=== PATIENT | male | born 1975 | race Caucasian/White ===

== ENCOUNTER 2017-11-19 09:04 | Emergency (ER) | payer SELFPAY ==
[2017-11-19 09:05] VITALS: BP 149/94; PULSE 86; RESP 16; TEMP 37.4; O2SAT 97; BMI 29.2
--- NOTE | 2017-11-19 09:34 | ED.VISSUMM ---
- ER Visit Summary Date of Service: 11/19/17 Chief Complaint: [Dental pain] History of Present Illness: The patient is a 42 M [presents to the emergency department with facial swelling that started this morning. Patient states he developed some sensitivity of the left upper teeth last evening]. Patient denies any fevers at home. Patient denies any chills. Physical Examination: [HEENT-PERRLA, EOMI. Cranial nerves II through XII grossly intact. TMs clear. Mucous membranes moist. No adenopathy. Patient has swelling to the left upper face. There is no facial cellulitis. Patient has tenderness to palpation over the left upper first premolar. No discrete abscess noted on exam. No gingival fluctuance. Cardiovascular-regular rate and rhythm without murmur or ectopy Lungs-clear to auscultation, chest wall stable without crepitus or subcu emphysema Abdomen-normoactive bowel sounds, soft, nontender, no rebound or rigidity, no peritoneal signs. Extremities-intact ?4, normal range of motion, normal pulses, atraumatic] Test Results: [None indicated] Emergency Department Course and Treatment: [Patient was started on clindamycin]. There is no discrete abscess to drain at this time. Treatment Plan: [Clindamycin and dental referral] Disposition: [Discharged home in stable condition] Impression: [Early dental abscess and dental pain] This note was generated with [employer] dictation software. It may contain incorrect words, spelling, and punctuation that were not noted in review of the chart prior to signing ED Disposition - Plan for ED Patient: Chief Complaint: Dental [facility]errals: [facility] [Primary Care Provider] -
--- NOTE | 2017-11-19 09:35 | ED.DEP ---
ED Disposition - Plan for ED Patient: Chief Complaint: Dental Instructions: ED Tooth Pain, Dental Abscess Prescriptions: Clindamycin HCl [Cleocin] 300 mg PO Q6H #40 cap [facility] [Primary Care Provider] - Additional Instructions: see a dentist
[2017-11-19] MEDS: Clindamycin HCl 150 MG Capsule 300 MG PO (09:43)
== END 2017-11-19 09:49 | disposition home or self-care (01) ==
LOC: ED 09:36
PROVIDERS: Emergency Provider Emergency Medicine
DX: K04.7 Periapical abscess without sinus (principal); K08.89 Other specified disorders of teeth and supporting structures; Z72.0 Tobacco use; Z79.899 Other long term (current) drug therapy
CPT/HCPCS: 99283

== ENCOUNTER 2022-02-17 16:22 | Emergency (ER) | payer BC, SELFPAY ==
[2022-02-17 16:23] VITALS: BP 153/89; PULSE 87; RESP 15; TEMP 36.6; O2SAT 99; BMI 30.6
--- NOTE | 2022-02-17 16:44 | ED.VIS.BACK ---
HPI History of Present Illness Chief Complaint: Back Detail of Chief Complaint: Back pain since yesterday Informant: patient Narrative Narrative: Patient presents to the emergency department complaint of back pain since yesterday. 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 Patient having a hard time turning and moving because of the pain. He denies any pain rating down his legs. He denies loss of bowel or bladder function. 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 He thinks it is from repetitive motions. He is not had any trauma to his elbow. PFSH PFSH Home Medications Abielaine Senatena 11/19/17 [History Last Taken Unknown] clindamycin HCl 300 mg capsule 300 mg PO Q6H #40 caps 11/19/17 [Rx Last Taken Unknown] cyclobenzaprine 10 mg tablet 10 mg PO TID PRN Muscle Spasm #20 TABLETS 02/17/22 [Rx Last Taken Unknown] hydrocodone-acetaminophen 5-325mg 5mg-325mg 1 tab PO Q4H PRN PRN Pain 3 days #15 TABLETS 02/17/22 [Rx Last Taken Unknown] naproxen 500 mg tablet 500 mg PO BID #14 tabs 02/17/22 [Rx Last Taken Unknown] Allergy/AdvReac Type Severity Reaction Status Date / Time No Known Allergies Allergy Verified 02/17/22 16:23 Social History Smoking Status: Current every day smoker ROS ROS ED Review of Systems ROS Unobtainable: other Constitutional Constitutional ED: Reports lethargy; Denies chills, fever(s), sweats or weight loss Eyes Eyes: Denies blurry vision, change in vision or diplopia ENT ENT ED: Denies rhinorrhea or sore throat Cardiovascular Cardiovascular: Reports chest pain and racing heartbeat; Denies orthopnea Respiratory/Chest Respiratory/Chest: Reports dyspnea and dyspnea on exertion; Denies cough, orthopnea or sputum Gastrointestinal Gastrointestinal: Denies abdominal pain, diarrhea, nausea or vomiting Genitourinary Genitourinary ED: Denies dysuria, hematuria or urinary frequency Musculoskeletal Musculoskeletal: Reports back pain and other Details: Right elbow pain ; Denies arthralgias, myalgias or neck pain Integumentary Denies abscess, Abrasions or rash Neurologic Neurologic: Denies headache(s) or weakness Psychiatric Psychiatric: Denies anxiety, depression or suicidal thoughts Endocrine Endocrinology: Denies polydipsia, polyphagia or polyuria Hematologic/Lymphatic Hematologic/Lymphatic: Denies easy bleeding, easy bruising or lymphadenopathy Allergic/Immunologic Allergic/Immunologic ED: Denies mouth swelling, tongue swelling or urticaria EXAM Physical Exam Const Vital Signs: 02/17/22 16:23 Temperature 97.8 F Temperature Source Temporal Pulse Rate 87 Respiratory Rate 15 Blood Pressure 153/89 H Blood Pressure Mean 110 Pulse Ox 99 Oxygen Delivery Method Room Air Positive well nourished and well developed General Appearance ED: well developed and NAD HEENT Reports TM's clear and moist mucous membranes normocephalic and atraumatic; Negative for trauma or tenderness Tympanic Membrane ED: Yes TM's clear Eyes PERRL and EOMs intact bilaterally General Eye ED: Negative for pale conjunctiva or scleral icterus Neck no lymphadenopathy, supple and no JVD General: Negative for tenderness Chest Wall inspection of chest normal and palpation of chest normal Chest: Negative for tenderness Resp normal respiratory effort and clear to auscultation bilaterally Effort and Inspection: Negative for respiratory distress or pain with movement Auscultation: Negative for rhonchi, wheezes or diminished lung sounds Cardio regular rate, regular rhythm, S1 normal heart sound, S2 normal heart sound and no murmurs Peripheral Pulses: pulses 2+ throughout GI normal to inspection, nondistended, normoactive bowel sounds, soft to palpation, non-tender, non-distended and no masses Back/Spine no CVA tenderness Back/Spine Narrative: ReproduceEvaluation of the patient's back reveals no erythema or warmth. There is no ecchymosis or bruising. Pain with palpation of his back. He has negative straight leg raises. Deep tendon reflexes are plus or 4 bilaterally at the patella and Achilles. Patient has normal 5 extension bilaterally. Patient does have pain with range of motion with movement and trying to sit. Extremity normal to inspection Extremity Narrative: Right elbow-patient has no evidence of ecchymosis or bruising. There is no erythema or warmth. He has normal range of motion. No real bony tenderness on exam. Neurovascularly intact. General Extremety ED: Negative for edema General Extremity: Negative for edema Neuro oriented x3, CN's II-XII intact bilaterally, no sensory deficits noted and gait normal Sensorium / Orientation: awake, alert, oriented to person, oriented to place and oriented to time Motor Exam: strength 5/5 throughout and strength abnormal Psych mental status grossly normal Skin no rashes or lesions noted and no wounds MDM MDM MDM Narrative Medical decision making narrative: I discussed with patient that given the mechanism of injury I did not feel x-rays were indicated. Patient is comfortable with this. I suspect likely lumbar spasm. Patient will be given a prescription for Naprosyn, Flexeril, and [place] for pain. I will feel x-rays of the elbow are indicated as I suspect this is like a repetitive use type injury. Patient is comfortable with plan and I will refer him to primary care physician for follow-up. Patient advised to return if worsening back pain, weakness in extremities, pain radiating down extremities, loss of bowel or bladder function, or condition should worsen anyway. Discharge Plan Triage Chief Complaint: Back ED Provider: Leonard Mojica Dx/Rx/DC Orders Clinical Impression: Lumbar strain, Elbow pain Instructions: ED Back Spasm, No Trauma, ED Pain, Acute, Uncertain Cause Prescriptions: New cyclobenzaprine [cyclobenzaprine] 10 MG tablet 10 mg PO TID PRN (Reason: Muscle Spasm) Qty: 20 0RF hydrocodone-acetaminophen [hydrocodone-acetaminophen] 1 TABLET tablet 1 tab PO Q4H PRN PRN (Reason: Pain) 3 Days Qty: 15 0RF naproxen 500 MG tablet 500 mg PO BID Qty: 14 0RF No Action Reannalilexy Ness clindamycin HCl 300 MG capsule 300 mg PO Q6H Qty: 40 0RF [facility] Care Provider: [facility] Referrals: Kodak Florez MD [NON-STAFF] - 3-5 Days [facility] [Primary Care Provider] - Disposition Disposition: Home, Self Care
== END 2022-02-17 16:59 | disposition home or self-care (01) ==
LOC: ED 16:48
PROVIDERS: Emergency Provider Emergency Medicine; Visit Provider Emergency Medicine
DX: S39.012A Strain of muscle, fascia and tendon of lower back, initial encounter (principal); X50.0XXA Overexertion from strenuous movement or load, initial encounter; Y93.89 Activity, other specified; Y99.8 Other external cause status; Y92.89 Other specified places as the place of occurrence of the external cause; M25.521 Pain in right elbow; F17.200 Nicotine dependence, unspecified, uncomplicated
CPT/HCPCS: 99282